=== PATIENT | male | born 1975 | race Caucasian/White ===

== ENCOUNTER 2021-05-18 11:34 | Emergency (ER) | payer BC, SELFPAY ==
--- NOTE | ~2021-05-18 | XR_ITS ---
EXAMINATION: XR knee RT 3V DATE: 05/18/2021 11:58 INDICATION: Right knee pain. TECHNIQUE: 3 views of right knee were obtained. COMPARISON: None. FINDINGS: Bone alignment is normal. No fracture. Joint spaces are well maintained. There is a moderat e-sized knee joint effusion. IMPRESSION: 1. Moderate-sized knee joint effusion. Reviewed, dictated and finalized at location A. [employer] COORD[employer]
--- NOTE | 2021-05-18 11:41 | ED.LOWEXIN ---
HPI - Extremity Injury (Lower) General Chief Complaint: Extremity Injury, Lower Stated Complaint: right knee pain Time Seen by Provider: 05/18/21 11:45 Source: patient and RN notes reviewed History of Present Illness HPI Narrative: 45-year-old male presents to the [facility] with complaints of right lateral knee pain for 1 month. After skiing on Thursday and started having increased pain and swelling on Thursday. Has taken Tylenol Motrin for pain and swelling. Denies any trauma. Has full range of motion pain with walking. Limp noted favoring right side Related Data Home Medications Medication Instructions Recorded Confirmed finasteride mg 05/18/21 Allergies Allergy/AdvReac Type Severity Reaction Status Date / Time codeine Allergy Anaphylaxis Verified 05/18/21 11:44 Review of Systems Review of Systems: All systems reviewed & are unremarkable except as noted in HPI and below Constitutional: Constitutional: Reports no additional constitutional complaints, Denies chills and Denies fever(s) Eyes: Eyes: Reports no additional eye complaints ENT: Reports system reviewed and no additional complaints, except as documented Cardiovascular: Cardiovascular: Reports no additional cardiovascular complaints Respiratory: Respiratory: Reports no additional respiratory complaints Musculoskeletal: Musculoskeletal: Reports as per HPI, Reports arthralgias (right knee) and Reports joint swelling (right knee) Integumentary/Breasts: Skin/Breast: Reports system reviewed and no additional complaints, except as docu and Denies rash Neurologic: Reports system reviewed and no additional complaints, except as documented Psychiatric: Psychiatric: Reports no additional psychiatric complaints Allergic/Immunologic: Allergic/Immunologic: Reports no additional allergic/immunologic complaints PMFSH Past Medical History Medical History (Updated 05/18/21 @ 14:27 by Jenn Moreland) No significant medical problems Surgical History Surgical History (Updated 05/18/21 @ 14:27 by Jenn Moreland) No pertinent past surgical history Social History Social History (Updated 05/18/21 @ 14:28 by Jenn Moreland) Gender identity (if verbalized by the patient): Male Comments At the time of my signature, I reviewed and agree with the nursing past medical, surgical, social, and family history. There is no relevant family history pertinent to the patient complaint. Exam Const: General: healthy appearing, no acute distress and alert Nutritional Appearance: well nourished Orientation/consciousness: patient oriented x3 Limitations: no limitations HENMT: Head: normal to inspection Eyes: Pupils: Equal, round and reactive pupils present Neck: Neck: normal visual inspection, no lymphadenopathy and no meningeal signs Chest: Chest palpation & inspection: normal inspection of the chest Resp: Effort & Inspection: normal respiratory effort Cardio: Rate: regular rate Rhythm: regular rhythm Back/Spine/Pelvis: Back: no CVA tenderness Skin: General skin exam: normal color Rashes: no rashes Wounds: no wounds Neuro: General: patient oriented x3 and moves all extremities Speech: normal speech Extrem: General: normal to inspection and no pedal edema Right lower extremity: normal capillary refill and knee Details: tenderness, swelling, normal ROM and knee ligament exam normal; no abrasions, no lacerations and no ecchymosis Psych: Appearance: grossly normal and well kempt Mental Status: mental status grossly normal Affect: normal affect Attitude: cooperative Thought content: Yes Normal thought content present Course Course Emergency Course: Discharge instructions reviewed with patient, as well as provided in writing per nursing staff. The instructions also include specific and strict return/GO TO THE ER as well as f/u information. All questions have been answered, and the patient deny any further questions with discharge and dis
[2021-05-18 11:45] VITALS: BP 151/87; PULSE 71; RESP 16; TEMP 36.4; O2SAT 98
[2021-05-18 11:46] VITALS: BP 151/87; PULSE 71; RESP 16; TEMP 36.4; O2SAT 98
== END 2021-05-18 12:25 | disposition home or self-care (01) ==
PROVIDERS: Emergency Provider Nurse Practitioner
DX: M25.461 Effusion, right knee (principal)
CPT/HCPCS: 73562; 99213; G0463